=== PATIENT | female | born 1965 | race Caucasian/White ===

== ENCOUNTER → 2018-04-07 12:06 | Outpatient (CLI) | payer MEDICAID | END | disposition home or self-care (01) | LOC: D.RAD 12:06 | DX: R22.1 Localized swelling, mass and lump, neck (principal); R63.4 Abnormal weight loss ==

== ENCOUNTER → 2018-04-22 15:40 | Outpatient (CLI) | payer MEDICAID | END | disposition home or self-care (01) | LOC: D.CT 04-10 14:30 | PROVIDERS: ATTEND Emergency Medicine | DX: R22.1 Localized swelling, mass and lump, neck (principal); R63.4 Abnormal weight loss ==

== ENCOUNTER 2018-04-30 19:07 | Emergency (ER) | payer MEDICAID ==
[~2018-04-30] VITALS: Ht 162.6 cm; Wt 70.0 kg
[2018-04-30 19:16] VITALS: Ht 162.6 cm; Wt 70.0 kg
[2018-04-30] MEDS ORDERED: ALBUTEROL SULF8.5 GM (19:17)
[2018-04-30] MEDS ORDERED: NEURONTIN 300300 MG (19:17)
[2018-04-30 19:40] LABS: BASOPHILS 0.2 % (0-2); EOSINOPHILS 1.3 % (0-7); HEMATOCRIT 43.1 % (36.0-48.0); HEMOGLOBIN 14.6 g/dL (12-16); LYMPHOCYTES 35.4 % (15-50); MCH 31.3 pg (26.0-34.0); MCHC 33.9 g/dL (31.0-37.0); MCV 92.3 fL (80.0-100.0); MEAN PLATELET VOLUME 9.5 fL (7.4-10.4); MONOCYTES 9.7 % (2-11); NEUTROPHILS 53.4 % (40-80); PLATELET COUNT 299 10x3/uL (130-400); RBC 4.67 10x6/uL (4.00-5.40); RDW 13.9 % (11.5-14.5); WBC 8.7 10x3/uL (4.8-10.8)
[2018-04-30 19:55] LABS: ALBUMIN 3.8 g/dL (3.4-5.0); ALKALINE PHOSPHATASE 63 U/L (46-116); ALT (SGPT) 11 U/L (10-68); BILIRUBIN - TOTAL 0.33 mg/dL (0.2-1.3); CALC OSMOLALITY 276 mosm/kg (275-300); CALCIUM 9.1 mg/dL (8.5-10.1); CARBON DIOXIDE 26.8 mmol/L (21.0-32.0); CHLORIDE - SERUM 101 mmol/L (98-107); CREATININE - SERUM 0.8 mg/dL (0.6-1.3); GLUCOSE 97 mg/dL (74-106); POTASSIUM - SERUM 3.7 mmol/L (3.5-5.1); PROTEIN - SERUM 7.8 g/dL (6.4-8.2); SODIUM 138 mmol/L (136-145); UREA NITROGEN 14 mg/dL (7-18); eGFR NON AFRICAN AMERICAN 80 mL/min (90-120)
[2018-04-30 21:18] LABS: APPEARANCE CLEAR (CLEAR); COLOR YELLOW (YELLOW); SPECIFIC GRAVITY 1.025 (1.005-1.020)
[2018-04-30 21:19] LABS: BILIRUBIN NEGATIVE (NEGATIVE); GLUCOSE NEGATIVE (NEGATIVE); KETONE NEGATIVE (NEGATIVE); NITRITE NEGATIVE (NEGATIVE); PROTEIN NEGATIVE (NEGATIVE); UROBILINOGEN NORMAL (NORMAL)
[2018-04-30 21:24] LABS: WHITE CELLS - URINE 0-5 /hpf (0-5)
[2018-04-30 21:25] LABS: BACTERIA FEW /hpf (NONE SEEN); EPITHELIAL CELLS OCC /hpf (0-5); RED CELLS - URINE OCC /hpf (0-5)
[2018-04-30 22:15] VITALS: BP 91/58
== END 2018-04-30 22:15 | disposition home or self-care (01) ==
LOC: D.ER 19:07
PROVIDERS: Family Medicine
DX: R10.2 Pelvic and perineal pain (principal)

== ENCOUNTER → 2018-09-02 13:01 | Outpatient (CLI) | payer MEDICAID ==
[2018-04-30 19:16] VITALS: BMI 26.5
[~2018-09-02 13:01] MED LIST: ALBUTEROL SULF8.5 GM; NEURONTIN 300300 MG
== END | disposition home or self-care (01) ==
LOC: D.RAD 13:01
PROVIDERS: ATTEND Emergency Medicine
DX: M25.512 Pain in left shoulder (principal)